=== PATIENT | female | born 1975 | race Caucasian/White ===

== ENCOUNTER 2019-03-25 20:32 | Emergency (ER) | payer BC ==
--- NOTE | 2019-03-25 20:55 | EDM.PDOC ---
ED HPI GENERAL MEDICAL PROBLEM - General Stated Complaint: DIZZINESS Time Seen by Provider: 03/25/19 20:54 Source of Information: Reports: Patient History Limitations: Reports: No Limitations - History of Present Illness INITIAL COMMENTS - FREE TEXT/NARRATIVE: 43-year-old female who reports that at approximately 7:30 PM tonight she was sitting in looking over some things on her phone and she developed a pressure pain in her central chest and in her upper abdomen and was quite severe she reports the pain was 8/10. She felt somewhat nauseated. There was no vomiting. She reports it Wednesday of this week she had onset of pain in her chest and not feeling well and at that time he was in her left chest and seemed to be a tightness and heaviness that also seem to be worse with taking a deep breath and was quite severe and it about an 8/10 at that point to it last for about 10 minutes and then went away. She reports that she has had several other episodes of this chest pain that were less severe and lasted for 5 minutes that were also left sided. She relates that they felt somewhat like when she was having gallbladder attacks prior to her gallbladder being removed. Currently her pain is about a 1/10 and seeming to go away. She presents to the emergency department via private vehicle with her and her children. No fevers chills. No cough. No nasal congestion. No sore throat. The episode chest pain today was associated with a near syncopal episode and that is what prompted her to bring her in. She had some dizziness associated with this episode as well and the dizziness was still present when she arrived but seemed to be going away. There are no other associated signs or symptoms. There are no other modifying factors. 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 Surgical history as detailed below.) - Past Surgical History GI Surgical History: Reports: Cholecystectomy Social & Family History - Tobacco Use Smoking Status *Q: Unknown Ever Smoked (Nonsmoker) - Alcohol Use Alcohol Use History: Yes Alcohol Use Frequency: Weekly - Living Situation & Occupation Living situation: Reports: Occupation: Employed (Works at [employer]) ED ROS GENERAL - Review of Systems Review Of Systems: See Below Constitutional: Reports: No Symptoms HEENT: Reports: No Symptoms Respiratory: Reports: Shortness of Breath (With these episodes) Cardiovascular: Reports: Chest Pain GI/Abdominal: Reports: Abdominal Pain (With these episodes), Nausea (Mild initially but none now). Denies: Vomiting : Reports: No Symptoms Musculoskeletal: Reports: Back Pain Skin: Reports: No Symptoms Neurological: Reports: Other (Near syncopal with episode today.) Hematologic/Lymphatic: Reports: No Symptoms Immunologic: Reports: No Symptoms ED EXAM, DIZZINESS - Physical Exam Exam: See Below Exam Limited By: No Limitations General Appearance: Alert, WD/WN, No Apparent Distress Eye Exam: Bilateral Eye: EOMI, Normal Inspection, PERRL Ears: Normal External Exam, Hearing Grossly Normal Nose: Normal Inspection, Normal Mucosa, No Blood Throat/Mouth: Normal Inspection, Normal Oropharynx, Normal Voice, No Airway Compromise Head Exam: Atraumatic, Normocephalic Neck: Normal Inspection, Supple, Non-Tender, Full Range of Motion Respiratory/Chest: No Respiratory Distress, Lungs Clear, Normal Breath Sounds, No Accessory Muscle Use, Chest Non-Tender Cardiovascular: Normal Peripheral Pulses, Regular Rate, Rhythm, No JVD, No Murmur GI/Abdominal: Normal Bowel Sounds, Soft, Non-Tender, No Distention, No Mass Neurological: Alert, Normal Mood/Affect, Normal Dorsiflexion, CN II-XII Intact, Normal Plantar Flexion, No Motor/Sensory Deficits, Oriented x 3 Back Exam: Normal Inspection. No: CVA Tenderness (R), CVA Tenderness (L) Extremities: Normal Inspection, Normal Range of Motion, Non-Tender, No Pedal Edema, Normal Capillary Refill Skin Exam: Warm, Dry, Intact, Normal Color, No Rash EKG INTERPRETATION EKG Date: 03/25/19 Time: 20:46 Rhythm: NSR Rate (Beats/Min): 64 [place]: Normal P-Wave: Present QRS: Normal ST-T: Normal QT: Normal Comparison: NA - No Prior EKG EKG Interpretation Comments: Normal EKG Course - Vital Signs Last Recorded V/S: Last Vital Signs Temp 36.6 C 03/25/19 20:32 Pulse 67 03/25/19 20:32 Resp 19 03/25/19 20:32 BP 116/72 03/25/19 20:32 Pulse Ox 100 03/25/19 20:32 - Orders/Labs/Meds Orders: Active Orders 24 hr Category Date Time Status EKG Documentation Completion [RC] ASDIRECTED Care 03/25/19 21:41 Active Chest 1V Frontal [CR] Stat Exams 03/25/19 21:41 Taken EKG 12 Lead [EK] Routine Ther 03/25/19 21:41 Ordered Labs: Laboratory Tests 03/25/19 03/25/19 03/25/19 Range/Units 22:00 22:00 22:00 WBC 9.9 (4.5-12.0) X10-3/uL RBC 4.66 (3.23-5.20) x10(6)uL Hgb 13.3 (11.5-15.5) g/dL Hct 40.7 (30.0-51.3) % MCV 87.3 (80-96) fL MCH 28.5 (27.7-33.6) pg MCHC 32.7 (32.2-35.4) g/dL RDW 13.2 (11.5-15.5) % Plt Count 216 (125-369) X10(3)uL MPV 9.0 (7.4-10.4) fL Neut % (Auto) 74.7 (46-82) % Lymph % (Auto) 18.1 (13-37) % [place] % (Auto) 5.8 (4-12) % Eos % (Auto) 1 (1.0-5.0) % Baso % (Auto) 1 (0-2) % Neut # (Auto) 7.4 (1.6-8.3) # Lymph # (Auto) 1.8 (0.6-5.0) # [place] # (Auto) 0.6 (0.0-1.3) # Eos # (Auto) 0.1 (0.0-0.8) # Baso # (Auto) 0.0 (0.0-0.2) # D-Dimer, Quantitative 0.25 (0.0-0.59) mg/LFEU Sodium 139 (135-145) mmol/L Potassium 4.2 (3.5-5.3) mmol/L Chloride 101 (100-110) mmol/L Carbon Dioxide 29 (21-32) mmol/L BUN 14 (7-18) mg/dL Creatinine 0.7 (0.55-1.02) mg/dL Est Cr Clr Drug Dosing TNP Estimated GFR (MDRD) > 60 (>60) BUN/Creatinine Ratio 20.0 (9-20) Glucose 98 (80-116) mg/dL Calcium 9.3 (8.6-10.2) mg/dL Total Bilirubin 0.5 (0.1-1.3) mg/dL AST 43 H (5-25) IU/L ALT 33 (12-36) U/L Alkaline Phosphatase 52 L (56-112) IU/L Troponin I (<0.017-0.056) ng/mL Total Protein 7.5 (6.0-8.0) g/dL Albumin 4.3 (3.5-5.2) g/dL Globulin 3.2 g/dL Albumin/Globulin Ratio 1.3 Lipase (73-393) U/L 03/25/19 Range/Units 22:00 WBC (4.5-12.0) X10-3/uL RBC (3.23-5.20) x10(6)uL Hgb (11.5-15.5) g/dL Hct (30.0-51.3) % MCV (80-96) fL MCH (27.7-33.6) pg MCHC (32.2-35.4) g/dL RDW (11.5-15.5) % Plt Count (125-369) X10(3)uL MPV (7.4-10.4) fL Neut % (Auto) (46-82) % Lymph % (Auto) (13-37) % [place] % (Auto) (4-12) % Eos % (Auto) (1.0-5.0) % Baso % (Auto) (0-2) % Neut # (Auto) (1.6-8.3) # Lymph # (Auto) (0.6-5.0) # [place] # (Auto) (0.0-1.3) # Eos # (Auto) (0.0-0.8) # Baso # (Auto) (0.0-0.2) # D-Dimer, Quantitative (0.0-0.59) mg/LFEU Sodium (135-145) mmol/L Potassium (3.5-5.3) mmol/L Chloride (100-110) mmol/L Carbon Dioxide (21-32) mmol/L BUN (7-18) mg/dL Creatinine (0.55-1.02) mg/dL Est Cr Clr Drug Dosing Estimated GFR (MDRD) (>60) BUN/Creatinine Ratio (9-20) Glucose (80-116) mg/dL Calcium (8.6-10.2) mg/dL Total Bilirubin (0.1-1.3) mg/dL AST (5-25) IU/L ALT (12-36) U/L Alkaline Phosphatase (56-112) IU/L Troponin I < 0.017 L (<0.017-0.056) ng/mL Total Protein (6.0-8.0) g/dL Albumin (3.5-5.2) g/dL Globulin g/dL Albumin/Globulin Ratio Lipase 151 (73-393) U/L - Radiology Interpretation Free Text/Narrative:: Chest x-ray shows no acute disease. - Re-Assessments/Exams Free Text/Narrative Re-Assessment/Exam: 03/25/19 22:50: The patient's blood tests were all reassuringly normal. Specifically, her d-dimer was normal and I think this rules out PE. Her chest x- ray shows no evidence of pneumothorax or pneumonia. Her EKG was normal. A troponin was negative. I am unsure why the patient a chest pain but it could be biliary function, GERD or dyspepsia, musculoskeletal or it still be clearly related to her heart although I think this is unlikely. I did recommend that we repeat her troponin in 2 hours, but she is not in favor of doing this and wanted to go home after I conveyed the results of her lab tests and discussed the possible etiologies of her chest pain. I have recommended that she get Prilosec, [id number], and take that daily. She is also to follow-up with Dr. Negrete. For cautions and reasons for return to the emergency department were discussed with the patient and her prior to the patient's discharge. Departure - Departure Time of Disposition: 22:58 Disposition: Home, Self-Care 01 Condition: Good (Stable) Clinical Impression: Atypical chest pain, Near syncope - Discharge Information Instructions: Near-Syncope, [id number], Nonspecific Chest Pain, [id number] Referrals: John Negrete MD [Primary Care Provider] - Forms: ED Department Discharge Additional Instructions: Your blood tests were all reassuringly normal. Your EKG was normal. Your chest x -ray was normal. As we discussed, I am unsure why you are having the recurrent episodes of chest pain. It is possible that this is either dyspepsia or gastroesophageal reflux disease/acid reflux and I have recommended that you take Prilosec ([id number]) daily as a trial. You should follow-up with Dr. Negrete. Back to the emergency department for worsening chest pain, difficulty breathing, coughing of blood, pass out spells or any other concerning sign or symptom. Sepsis Event Note - Focused Exam Vital Signs: Vital Signs Temp Pulse Resp BP Pulse Ox 03/25/19 20:32 36.6 C 67 19 116/72 100 Date Exam was Performed: 03/26/19 Time Exam was Performed: 04:06 - My Orders Last 24 Hours: My Active Orders 03/25/19 21:41 EKG Documentation Completion [RC] ASDIRECTED Chest 1V Frontal [CR] Stat EKG 12 Lead [EK] Routine - Assessment/Plan Last 24 Hours: My Active Orders 03/25/19 21:41 EKG Documentation Completion [RC] ASDIRECTED Chest 1V Frontal [CR] Stat EKG 12 Lead [EK] Routine
--- NOTE | 2019-03-27 11:10 | CR ---
INDICATION: Chest pain. CHEST, ONE VIEW: Portable AP upright view of the chest 03/25/19 - no comparisons. The heart is normal in size, mediastinum was unremarkable. Overlying EKG leads are noted. Bony structures appear to be grossly intact. An active infiltrate or effusion was not identified. IMPRESSION: No acute process. MTDD
== END 2019-03-25 23:45 | disposition home or self-care (01) ==
LOC: FB.ED 20:32
DX: R55 Syncope and collapse (principal); R07.89 Other chest pain
CPT/HCPCS: 36415; 71045; 80053; 83690; 84484; 85025; 85379; 93005; 99285-25